=== PATIENT | male | born 1985 | race Caucasian/White ===

== ENCOUNTER → 2020-04-27 | Outpatient (CLI) | payer MEDICARE, MEDICAID, SELFPAY | END | disposition home or self-care (01) | LOC: LABSPEC 09:51 | PROVIDERS: PCP Internal Medicine; Referring Provider Clinical Nurse Specialist; Visit Provider Clinical Nurse Specialist | DX: Z20.828 Contact with and (suspected) exposure to other viral communicable diseases (principal) | CPT/HCPCS: 87635; C9803; G2023; U0003 ==

== ENCOUNTER 2020-11-27 18:58 | Emergency (ER) | payer OTHER, MEDICARE, MEDICAID, SELFPAY ==
[2020-11-27 19:00] VITALS: BP 161/106; PULSE 118; RESP 21; TEMP 36.6; O2SAT 99; BMI 35.4
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
[2020-11-27 20:18] LABS: Absolute Lymphocyte Count 1.53 X10^3/uL (0.83-4.51); Absolute Neutrophil Count 11.1 X10^3/uL (2.0-7.7); Basophil# 0.06 X10^3/uL; Basophil% 0.4 % (0-1); Eosinophil# 0.13 X10^3/uL; Hematocrit 49.4 % (40-54); Hemoglobin 17.2 g/dL (13.0-16.5); Lymphocyte # 1.53 X10^3/ul (4.0); Lymphocyte % 11.2 % (19-41); Mean Corp Hgb Conc 34.8 g/dL (32-36); Mean Corpuscular Hgb 32.8 pg (27.0-32.0); Mean Corpuscular Volume 94.3 fL (80-94); Mean Platelet Vol. 9.4 fl (6.2-12.0); Monocyte# 0.79 X10^3/uL; Monocyte% 5.8 % (0-10); NRBC Flagged by Analyzer 0 % (0-5); Neutrophil # 11.08 X10^3/uL (2.7-7.7); Neutrophil % 81.2 % (47-70); Platelet Count 284 K/mm3 (150-450); RBC Distribution Width CV 11.9 % (11.6-14.6); RBC Distribution Width SD 41.7 fl (35.1-43.9); Red Blood Count 5.24 M/mm3 (4.6-6.2); White Blood Count 13.7 K/mm3 (4.4-11.0)
[2020-11-27 20:25] LABS: International Normalized Ratio 0.9
[2020-11-27 20:32] LABS: Anion Gap 6 (5-15); BUN 15 mg/dL (7-18); BUN/Creat Ratio 16.3 RATIO (10-20); Chloride 109 mmol/L (98-107); Creatinine, Serum 0.92 mg/dL (0.70-1.30); EST Glomerular Filtration Rate 101 mL/min (>60); Est Glom Filt Rate - Afr Amer 122 mL/min (>60); Glucose 103 mg/dL (74-106); Potassium 3.9 mmol/L (3.5-5.1); Sodium Level 141 mmol/L (136-145)
[2020-11-27 20:44] LABS: Alcohol, Blood (Medical)-Serum < 3.0 mg/dL
[2020-11-27 20:56] LABS: Bacteria 0 SEEN /hpf (None Seen); Mucous, Urine 0 SEEN /hpf (<or=2+); Red Blood Cells-Urine 0 SEEN /hpf (0-5); White Blood Cells 0 SEEN /hpf (0-5)
[2020-11-27 20:57] LABS: Color, Urine Yellow (Yellow); Glucose, Dipstick Normal (Normal); Ketone-Dipstick Negative (Negative); Leukocyte Esterase-Dipstick Negative /ul (Negative); Nitrite-Dipstick Negative (Negative); Occult Blood-Urine Negative /ul (Negative); Protein-Dipstick 15 mg/dl (Negative); Urine Bilirubin Dipstick Negative (Negative); Urine Clarity Sl. Cloudy (Clear); Urine Urobilinogen 1 mg/dl (Normal)
[2020-11-27 21:11] VITALS: RESP 16
[2020-11-27 21:11] LABS: Amorphous Sediment 1+ PHOS; Squamous Epithelial Cells - UA 0-5 SEEN /hpf (0-5)
[2020-11-27] MEDS: Ondansetron 4 MG/2 ML Vial IM (21:12)
[2020-11-27] MEDS: fentaNYL 100 MCG/2 ML Ampul 25 MCG IV (21:12)
[2020-11-27 21:42] VITALS: PULSE 97; RESP 18; O2SAT 99
== END 2020-11-27 21:43 | disposition home or self-care (01) ==
PROVIDERS: Emergency Provider Student in an Organized Health Care Education/Training Program; PCP Internal Medicine
DX: S20.212A Contusion of left front wall of thorax, initial encounter (principal); D72.829 Elevated white blood cell count, unspecified; V89.2XXA Person injured in unspecified motor-vehicle accident, traffic, initial encounter; Y93.9 Activity, unspecified; Y92.9 Unspecified place or not applicable; F90.9 Attention-deficit hyperactivity disorder, unspecified type; Z79.899 Other long term (current) drug therapy; F17.200 Nicotine dependence, unspecified, uncomplicated
CPT/HCPCS: 70450; 71260; 74177; 80048; 81001; 82077; 85025; 85610; 93005; 96372; 96374; 99284; Q9967; A4216; J2405

== ENCOUNTER 2025-03-13 23:47 | Emergency (ER) | payer MEDICAID, SELFPAY ==
[2025-03-13 23:48] VITALS: BP 125/91; PULSE 98; RESP 16; TEMP 37; O2SAT 93; BMI 40.4
[2025-03-14] MEDS: Cephalexin 250 MG Capsule 500 MG PO (00:46)
[2025-03-14] MEDS: Lidocaine 2% (20 ml mdv) 20 ML Vial INFILT (00:46)
--- NOTE | 2025-03-14 01:10 | EX.ED.DYSGE1 ---
HPI History of Present Illness Chief Complaint: Lower Extremity Injury Informant: patient Narrative Narrative: Patient is a 39-year-old male with past medical history of traumatic brain injury and seizure disorder. He states roughly 1 to 2 hours ago he was walking barefoot when he had a piece of wood/splinter pierced the bottom of his right foot. He states that he tried to remove the splinter at home but was unsuccessful and secondary to this comes in for evaluation. He denies any history of immunosuppression PFSH PFSH Medical History no medical history Home Medications ?Medication ?Instructions ?Recorded ?Last Taken ?Type cephalexin 500 mg capsule 500 mg PO TID 7 days #21 caps 03/14/25 Unknown Rx Allergy/AdvReac Type Severity Reaction Status Date / Time bismuth subsalicylate (From Allergy Upset Verified 03/13/25 23:56 Pepto-Bismol) Stomach phenytoin (From Dilantin) Allergy Unknown Verified 03/13/25 23:56 Surgical History no surgical history Social History Smoking Status: Current every day smoker tobacco type: cigarettes ROS ROS ED Constitutional Constitutional ED: Denies chills or fever(s) Cardiovascular Cardiovascular: Denies chest pain Respiratory/Chest Respiratory/Chest: Denies cough or dyspnea Gastrointestinal Gastrointestinal: Denies abdominal pain, diarrhea, nausea or vomiting Musculoskeletal Musculoskeletal: Reports other Details: Positive right foot pain Integumentary Reports Abrasions and other Details: Positive splinter right foot Neurologic Neurologic: Denies headache(s) or paresthesias Hematologic/Lymphatic Hematologic/Lymphatic: Denies easy bleeding or easy bruising EXAM Physical Exam Const Vital Signs: 03/13/25 23:48 03/14/25 01:12 Temperature 98.6 F 98.0 F Temperature Source Oral Pulse Rate 98 93 Respiratory Rate 16 18 Blood Pressure 125/91 H 120/85 H Blood Pressure Mean 102 96 Pulse Ox 93 97 Oxygen Delivery Method Room Air Positive well nourished, well developed and obese General Appearance ED: well developed Nutritional Appearance: obese HEENT HEENT Narrative: Normocephalic atraumatic Eyes PERRL and EOMs intact bilaterally Neck supple Resp normal respiratory effort and clear to auscultation bilaterally Cardio regular rate and regular rhythm Extremity Extremity Narrative: Right lower extremity is neurovascularly intact To the plantar aspect of the right foot and there is a 2 cm splinter in the dermal layer tissue along the ball to the midfoot consistent with reported injury. No active bleeding. No soft tissue surrounding changes to suggest infection. Neuro oriented x3, CN's II-XII intact bilaterally and no sensory deficits noted Sensorium / Orientation: alert Motor Exam: strength 5/5 throughout Psych mental status grossly normal Skin Skin Narrative: Puncture wound/retained foreign body to the plantar aspect of the right foot as documented above MDM MDM MDM Narrative Medical decision making narrative: Patient presented to the ER with report of puncture wound/retained foreign body to the right foot. Physical exam confirms there is a retained foreign object. There is no signs of acute infection at this time. Also the foreign object is superficial going against potential arterial injury or fracture. Therefore I felt no need for imaging studies. The patient had the foreign object removed as documented below. As puncture wounds to the plantar aspect of the foot are high risk for infection he will be placed on Keflex. However he does not have signs of active infection at this point nor other changes to suggest ligamentous tendon or bony injury so he is otherwise safe for discharge Patient had the plantar aspect of the right foot cleaned with chlorhexidine. The area was anesthetized with 5 mL of 2% lidocaine without epinephrine and local fashion. Needle drivers were used to grab the splinter/foreign object and traction was applied. The foreign object came out in 1 complete piece. There is no active bleeding. The patient tolerated the procedure well without complication History & Record Review Discussion w/independent historian: Patient Discharge Plan Triage Chief Complaint: Lower Extremity Injury ED Provider: Dennis Omalley Dx/Rx/DC Orders Clinical Impression: Acute foreign body of right foot, History of traumatic brain injury, Seizure disorder Instructions: ED Foreign Body, Soft Tissue (Removed) Prescriptions: New cephalexin 500 mg capsule 500 mg PO TID 7 Days Qty: 21 0RF Primary Care Provider: Katie Evans Referrals: Katie Evans MD [Primary Care Provider] - Activity Restrictions/Additional Instructions: Please continue to wash your foot with soap and water and take the antibiotic as directed to help prevent a secondary infection from the puncture wound/splinter. Return to the ER should you have any further concerns Print Language: Slovenian Disposition Disposition: Home, Self Care Discharge Date/Time: 03/14/25 01:14
[2025-03-14 01:12] VITALS: BP 120/85; PULSE 93; RESP 18; TEMP 36.7; O2SAT 97
== END 2025-03-14 01:14 | disposition home or self-care (01) ==
PROVIDERS: Emergency Provider Emergency Medicine; PCP Internal Medicine; Visit Provider Emergency Medicine
DX: S91.341A Puncture wound with foreign body, right foot, initial encounter (principal); G40.909 Epilepsy, unspecified, not intractable, without status epilepticus; F17.210 Nicotine dependence, cigarettes, uncomplicated; W22.8XXA Striking against or struck by other objects, initial encounter; Y93.01 Activity, walking, marching and hiking; Z18.89 Other specified retained foreign body fragments; S90.851A Superficial foreign body, right foot, initial encounter
CPT/HCPCS: 10120; 99283

== ENCOUNTER 2025-04-11 00:11 | Emergency (ER) | payer MEDICAID, SELFPAY ==
[2025-04-11 00:12] VITALS: BP 135/95; PULSE 85; RESP 16; TEMP 36.6; O2SAT 93; BMI 38.7
--- NOTE | 2025-04-11 00:18 | EX.ED.UPPERE ---
HPI History of Present Illness Chief Complaint: Wound Informant: patient Narrative Narrative: 39-year-old [id number] male states in a nonwork related injury, he was trying to put a trailer tong on a trailer hitch and it slipped and caught his right index finger in between it crushing it causing a laceration and now he is having trouble bending it. This happened earlier today. Tetanus Immunization: Unknown [facility] Medical History no medical history Home Medications ?Medication ?Instructions ?Recorded ?Last Taken ?Type cephalexin 500 mg capsule 500 mg PO Q6 #20 CAPSULES 04/11/25 Unknown Rx Allergy/AdvReac Type Severity Reaction Status Date / Time bismuth subsalicylate (From Allergy Upset Verified 04/11/25 00:11 Pepto-Bismol) Stomach phenytoin (From Dilantin) Allergy Unknown Verified 04/11/25 00:11 Social History Smoking Status: Current every day smoker tobacco type: cigarettes ROS ROS ED Constitutional Constitutional ED: Denies chills or fever(s) Musculoskeletal Musculoskeletal: Reports extremity pain; Denies neck pain Integumentary Reports laceration; Denies Abrasions or rash Neurologic Neurologic: Denies paresthesias or weakness EXAM Physical Exam Const Vital Signs: 04/11/25 00:12 Temperature 97.8 F Temperature Source Oral Pulse Rate 85 Respiratory Rate 16 Blood Pressure 135/95 H Blood Pressure Mean 108 Pulse Ox 93 Oxygen Delivery Method Room Air Positive well nourished and well developed General Appearance ED: well developed and NAD Neck full ROM and supple Back/Spine normal ROM and normal to inspection Extremity Extremity Narrative: Right index finger volar laceration 2 cm jagged but otherwise relatively clean appearing just distal to the PIPJ, patient is able to flex at the PIPJ without difficulty, but he is not able to flex the FDS/DIPJ. Extensors intact without difficulty. No nail injury or subungual hematoma. There is tenderness at the PIPJ and the proximal phalanx without deformity. No other injuries or loss of function otherwise in the hand. Neuro oriented x3, no focal motor deficits and no sensory deficits noted Sensorium / Orientation: alert Psych mental status grossly normal and thought process normal Skin Skin Narrative: 2 cm laceration volar right index finger see above Rashes: no rashes MDM MDM MDM Narrative Medical decision making narrative: Three-view x-ray series of the right index finger on my interpretation are negative for fracture or dislocation. No radiopaque foreign bodies. His hand is filthy, as is the rest of him. I anesthetized the wound locally, scrubbed, repaired the laceration, and even after repair, he still was not able to flex at the FDP. Therefore he is splinted in partial flexion, started on prophylactic antibiotics, and will follow-up with plastics as an outpatient after the weekend. Procedures Lacerations R index finger: Length: 2 cm Depth: Sub Q Shape: Linear Prep: Sterile Conditions and Chlorhexadine Laceration repair: Irrigated, Lidocaine (1%, 1.5cc) and Local Irrigated (ml): 60 Number of Sutures/[place]: 5 Suture Information: Ethilon, Simple and 5-0 Comment: oblique lac; tendons not visible within wound Upper Extremity Splints Upper Extremity Splint: Alumifoam Splint Fabrication: Fabricated Location: Right (index finger in partial flexion; NVID after placement) Discharge Plan Triage Chief Complaint: Wound ED Provider: Dipak Niño Dx/Rx/DC Orders Clinical Impression: Laceration of right index finger w/o foreign body w/o damage to nail, Laceration of flexor muscle, fascia and tendon of right index finger at wrist and hand level, initial encounter Instructions: Treating Flexor Tendon Lacerations, ED Laceration, Hand: All Closures Prescriptions: New cephalexin 500 mg capsule 500 mg PO Q6 Qty: 20 0RF Primary Care Provider: Katie Evans Referrals: Leonard Bryant MD [Med Staff - Active Staff] - As soon as possible (call sunday AM for appt) Print Language: Sammarinese Disposition Disposition: Home, Self Care
--- NOTE | 2025-04-11 00:20 | RAD_ITS ---
PROCEDURE: FINGER(S) MIN 2 VIEWS 04/11/2025 REASON FOR EXAM: INJURY TECHNIQUE: FINGER(S) MIN 2 VIEWS COMPARISON: None. FINDINGS: Palmar laceration overlying the base of the base of the middle phalanx of the 2nd finger. No dislocation is seen. Normal metacarpal head. Normal metacarpophalangeal joint. Normal proximal phalanx. Normal middle phalanx. Normal distal phalanx. Normal proximal interphalangeal joint. Normal distal interphalangeal joint. RAD/Finger(s) Min 2 Views IMPRESSION: Soft tissue soft tissue edema and laceration. [id number]
[2025-04-11] MEDS: Lidocaine 1% (20 ml mdv) 20 ML Vial INFILT (00:27)
--- OUTSIDE RECORDS SUMMARY | 2025-04-11 00:45 | XMS RPT_ITS | CCD ---
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 stay focused at job as directed. Denies any concerns over chest pain. documented as of this encounter (statuses as of 11/13/2022) [facility] History of Past illness Narrative* Problem Noted Date Resolved Date Unspecified epilepsy with intractable epilepsy 0 12/31/2008 06/13/2012 Overview: Tegretol level increased per [place] in 4-09: released to drive as no seizure activity in 6 mo Attention deficit disorder with hyperactivity(31 4.01) 12/31/2008 08/18/2015 Overview: HIV negative in 01-04: pt's girlfriend reportedly has HIV Last Assessment & Plan: Follows with PCP for stimulant to use- takes 5 days per week to help stay focused at job as directed. Denies any concerns over chest pain. documented as of this encounter (statuses as of 12/12/2022) [facility] History of Past illness Narrative* Problem Noted Date Resolved Date Unspecified epilepsy with intractable epilepsy 0 12/31/2008 06/13/2012 Overview: Tegretol level increased per [place] in 4: released to drive as no seizure activity in 6 mo Attention deficit disorder with hyperactivity(31 4.01) 12/31/2008 08/18/2015 Overview: HIV negative in 01-04: pt's girlfriend reportedly has HIV Last Assessment & Plan: Follows with PCP for stimulant to use- takes 5 days per week to help stay focused at job as directed. Denies any concerns over chest pain. documented as of this encounter (statuses as of 04/18/2023) [facility] History of Past illness Narrative* Problem Noted Date Resolved Date Unspecified epilepsy with intractable epilepsy 0 12/31/2008 06/13/2012 Overview: Tegretol level increased per [place] in 4: released to drive as no seizure activity in 6 mo Attention deficit disorder with hyperactivity(31 4.01) 12/31/2008 08/18/2015 Overview: HIV negative in 01-04: pt's girlfriend reportedly has HIV Last Assessment & Plan: Follows with PCP for stimulant to use- takes 5 days per week to help stay focused at job as directed. Denies any concerns over chest pain. documented as of this encounter (statuses as of 04/19/2023) [facility] History of Past illness Narrative* Problem Noted Date Resolved Date Unspecified epilepsy with intractable epilepsy 0 12/31/2008 06/13/2012 Overview: Tegretol level increased per [place] in 02-04: released to drive as no seizure activity in 6 mo Attention deficit disorder with hyperactivity(31 4.01) 12/31/2008 08/18/2015 Overview: HIV negative in 01-04: pt's girlfriend reportedly has HIV Last Assessment & Plan: Follows with PCP for stimulant to use- takes 5 days per week to help stay focused at job as directed. Denies any concerns over chest pain. documented as of this encounter (statuses as of 04/19/2023) [facility] History of Past illness Narrative* Problem Noted Date Resolved Date Unspecified epilepsy with intractable epilepsy 0 12/31/2008 06/13/2012 Overview: Tegretol level increased per [place] in 02-04: released to drive as no seizure activity in 6 mo Attention deficit disorder with hyperactivity(31 4.01) 12/31/2008 08/18/2015 Overview: HIV negative in 01-04: pt's girlfriend reportedly has HIV Last Assessment & Plan: Follows with PCP for stimulant to use- takes 5 days per week to help stay focused at job as directed. Denies any concerns over chest pain. documented as of this encounter (statuses as of 04/27/2023) [facility] History of Past illness Narrative* Problem Noted Date Diagnosed Date Resolved Date Unspecified epilepsy with in tractable epilepsy 12/31/2008 06/13/2012 Overview: Tegretol level increased per [place] in 02-04: released to drive as no seizure activity in 6 mo Attention deficit disorder w ith hyperactivity(314.01) 12/31/2008 08/18/2015 Overview: HIV negative in 01-04: pt's girlfriend reportedly has HIV Last Assessment & Plan: Follows with PCP for stimulant to use- takes 5 days per week to help stay focused at job as directed. Denies any concerns over chest pain. documented as of this encounter (statuses as of 05/16/2023) [facility] History of Past illness Narrative* Problem Noted Date Diagnosed Date Resolved Date Unspecified epilepsy with in tractable epilepsy 12/31/2008 06/13/2012 Overview: Tegretol level increased per [place] in 4-09: released to drive as no seizure activity in 6 mo Attention deficit disorder w ith hyperactivity(314.01) 12/31/2008 08/18/2015 Overview: HIV negative in 01-04: pt's girlfriend reportedly has HIV Last Assessment & Plan: Follows with PCP for stimulant to use- takes 5 days per week to help stay focused at job as directed. Denies any concerns over chest pain. documented as of this encounter (statuses as of 05/16/2023) [facility] History of Past illness Narrative* Problem Noted Date Diagnosed Date Resolved Date Unspecified epilepsy with in tractable epilepsy 12/31/2008 06/13/2012 Overview: Tegretol level increased per [place] in 4: released to drive as no seizure activity in 6 mo Attention deficit disorder w ith hyperactivity(314.01) 12/31/2008 08/18/2015 Overview: HIV negative in 01-04: pt's girlfriend reportedly has HIV Last Assessment & Plan: Follows with PCP for stimulant to use- takes 5 days per week to help stay focused at job as directed. Denies any concerns over chest pain. documented as of this encounter (statuses as of 05/16/2023) [facility] History of Past illness Narrative* Problem Noted Date Diagnosed Date Resolved Date Unspecified epilepsy with in tractable epilepsy 12/31/2008 06/13/2012 Overview: Tegretol level increased per [place] in 4-09: released to drive as no seizure activity in 6 mo Attention deficit disorder w ith hyperactivity(314.01) 12/31/2008 08/18/2015 Overview: HIV negative in 01-04: pt's girlfriend reportedly has HIV Last Assessment & Plan: Follows with PCP for stimulant to use- takes 5 days per week to help stay focused at job as directed. Denies any concerns over chest pain. documented as of this encounter (statuses as of 06/02/2023) [facility] History of Past illness Narrative* Problem Noted Date Diagnosed Date Resolved Date Unspecified epilepsy with in tractable epilepsy 12/31/2008 06/13/2012 Overview: Tegretol level increased per [place] in 02-04: released to drive as no seizure activity in 6 mo Attention deficit disorder w ith hyperactivity(314.01) 12/31/2008 08/18/2015 Overview: HIV negative in 01-04: pt's girlfriend reportedly has HIV Last Assessment & Plan: Follows with PCP for stimulant to use- takes 5 days per week to help stay focused at job as directed. Denies any concerns over chest pain. documented as of this encounter (statuses as of 06/26/2023) [facility] History of Past illness Narrative* Problem Noted Date Diagnosed Date Resolved Date Unspecified epilepsy with in tractable epilepsy 12/31/2008 06/13/2012 Overview: Tegretol level increased per [place] in 02-04: released to drive as no seizure activity in 6 mo Attention deficit disorder w ith hyperactivity(314.01) 12/31/2008 08/18/2015 Overview: HIV negative in 01-04: pt's girlfriend reportedly has HIV Last Assessment & Plan: Follows with PCP for stimulant to use- takes 5 days per week to help stay focused at job as directed. Denies any concerns over chest pain. documented as of this encounter (statuses as of 06/28/2023) [facility] History of Past illness Narrative* Problem Noted Date Diagnosed Date Resolved Date Unspecified epilepsy with in tractable epilepsy 12/31/2008 06/13/2012 Overview: Tegretol level increased per [place] in 02-04: released to drive as no seizure activity in 6 mo Attention deficit disorder w ith hyperactivity(314.01) 12/31/2008 08/18/2015 Overview: HIV negative in 01-04: pt's girlfriend reportedly has HIV Last Assessment & Plan: Follows with PCP for stimulant to use- takes 5 days per week to help stay focused at job as directed. Denies any concerns over chest pain. documented as of this encounter (statuses as of 07/16/2023) [facility] History of Past illness Narrative* Problem Noted Date Diagnosed Date Resolved Date Unspecified epilepsy with in tractable epilepsy 12/31/2008 06/13/2012 Overview: Tegretol level increased per [place] in 02-04: released to drive as no seizure activity in 6 mo Attention deficit disorder w ith hyperactivity(314.01) 12/31/2008 08/18/2015 Overview: HIV negative in 01-04: pt's girlfriend reportedly has HIV Last Assessment & Plan: Follows with PCP for stimulant to use- takes 5 days per week to help stay focused at job as directed. Denies any concerns over chest pain. documented as of this encounter (statuses as of 11/03/2023) [facility] History of Past illness Narrative* Problem Noted Date Diagnosed Date Resolved Date Unspecified epilepsy with in tractable epilepsy 12/31/2008 06/13/2012 Overview: Tegretol level increased per [place] in 02-04: released to drive as no seizure activity in 6 mo Attention deficit disorder w ith hyperactivity(314.01) 12/31/2008 08/18/2015 Overview: HIV negative in 01-04: pt's girlfriend reportedly has HIV Last Assessment & Plan: Follows with PCP for stimulant to use- takes 5 days per week to help stay focused at job as directed. Denies any concerns over chest pain. documented as of this encounter (statuses as of 02/01/2024) [facility] of Past illness Narrative* Problem Noted Date Diagnosed Date Resolved Date Unspecified epilepsy with in tractable epilepsy 12/31/2008 06/13/2012 Overview: Tegretol level increased per [place] in 02-04: released to drive as no seizure activity in 6 mo Attention deficit disorder w ith hyperactivity(314.01) 12/31/2008 08/18/2015 Overview: HIV negative in 01-04: pt's girlfriend reportedly has HIV Last Assessment & Plan: Follows with PCP for stimulant to use- takes 5 days per week to help stay focused at job as directed. Denies any concerns over chest pain. 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 Attention deficit hyperactivity disorder (ADHD), combined type Encounter for long-term current use of medication [facility] Attention deficit hyperactivity disorder (ADHD), combined type Generalized convulsive epilepsy (HCC) Generalized convulsive epilepsy without mention of intractable epilepsy [facility] 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 [facility] Attention deficit hyperactivity disorder (ADHD), combined type- Primary Generalized convulsive epilepsy (HCC) Generalized convulsive epilepsy without mention of intractable epilepsy Encounter for long-term current use of medication Sprain of left ankle, unspecified ligament, sequela [facility] Chronic pain of left ankle- Primary Contusion of right great toe with damage to nail, sequela Contusion of left great toe with damage to nail, sequela Generalized convulsive epilepsy (HCC) Generalized convulsive epilepsy without mention of intractable epilepsy Headaches [facility] Attention deficit hyperactivity disorder (ADHD), combined type [facility] Diagnosis Convulsions, unspecified convulsion type (HCC)- Primary [facility] Diagnosis Encounter for long-term current use of medication- Primary Attention deficit hyperactivity disorder (ADHD), combined type Generalized convulsive epilepsy (HCC) Generalized convulsive epilepsy without mention of intractable epilepsy [facility] Diagnosis Rash- Primary Rash and other nonspecific skin eruption [facility] Diagnosis Convulsions, unspecified convulsion type (HCC)- Primary [facility] Diagnosis Attention deficit hyperactivity disorder (ADHD), combined type- Primary Generalized convulsive epilepsy (HCC) Generalized convulsive epilepsy without mention of intractable epilepsy Rash Rash and other nonspecific skin eruption [facility] Diagnosis Attention deficit hyperactivity disorder (ADHD), combined type- Primary Class 3 severe obesity due to excess calories without serious comorbidity with body mass index (BMI) of 40.0 to 44.9 in adult (HCC) Generalized convulsive epilepsy (HCC) Generalized convulsive epilepsy without mention of intractable epilepsy Cigarette smoker Tobacco use disorder Elevated glucose Other abnormal glucose Elevated triglycerides with high cholesterol Mixed hyperlipidemia Encounter for long-term current use of medication [facility] Diagnosis Attention deficit hyperactivity disorder (ADHD), combined type- Primary Generalized convulsive epilepsy (HCC) Generalized convulsive epilepsy without mention of intractable epilepsy Asthma Unspecified asthma Fungal infection Other and unspecified mycoses Cigarette smoker Tobacco use disorder [facility] Diagnosis Asthma, unspecified asthma severity, unspecified whether complicated, unspecified whether persistent [facility] Diagnosis Convulsions, unspecified convulsion type (HCC)- Primary [facility] Diagnosis Generalized convulsive epilepsy without mention of intractable epilepsy- Primary ATTN DEFICIT W HYPERACT Attention deficit disorder with hyperactivity Tobacco use disorder ATTN DEFICIT W HYPERACT- Primary Attention deficit disorder with hyperactivity Unspecified asthma Other convulsions Generalized convulsive epilepsy without mention of intractable epilepsy Elevated triglycerides with high cholesterol- Primary Mixed hyperlipidemia Mild intermittent asthma without complication Unspecified asthma Class 3 severe obesity due to excess calories without serious comorbidity with body mass index (BMI) of 40.0 to 44.9 in adult (HCC) Cigarette smoker Tobacco use disorder Insomnia, unspecified type [facility] Diagnosis Generalized convulsive epilepsy without mention of intractable epilepsy- Primary ATTN DEFICIT W HYPERACT Attention deficit disorder with hyperactivity Tobacco use disorder ATTN DEFICIT W HYPERACT- Primary Attention deficit disorder with hyperactivity Unspecified asthma Other convulsions Generalized convulsive epilepsy without mention of intractable epilepsy Attention deficit hyperactivity disorder (ADHD), combined type- Primary Generalized convulsive epilepsy (HCC) Generalized convulsive epilepsy without mention of intractable epilepsy Uncomplicated asthma, unspecified asthma severity, unspecified whether persistent Fungal infection Other and unspecified mycoses Discoloration and thickening of nails both feet Cigarette smoker Tobacco use disorder Encounter for immunization Need for other specified prophylactic vaccination against single bacterial disease [facility] Diagnosis Generalized convulsive epilepsy without mention of intractable epilepsy- Primary ATTN DEFICIT W HYPERACT Attention deficit disorder with hyperactivity Tobacco use disorder ATTN DEFICIT W HYPERACT- Primary Attention deficit disorder with hyperactivity Unspecified asthma Other convulsions Generalized convulsive epilepsy without mention of intractable epilepsy Onychodystrophy- Primary Other specified disease of nail Discoloration and thickening of nails both feet Tinea pedis of left foot Dermatophytosis of foot [facility] Diagnosis Generalized convulsive epilepsy without mention of intractable epilepsy- Primary ATTN DEFICIT W HYPERACT Attention deficit disorder with hyperactivity Tobacco use disorder ATTN DEFICIT W HYPERACT- Primary Attention deficit disorder with hyperactivity Unspecified asthma Other convulsions Generalized convulsive epilepsy without mention of intractable epilepsy Exposure to confirmed case of COVID-19- Primary [facility] Diagnosis Generalized convulsive epilepsy without mention of intractable epilepsy- Primary ATTN DEFICIT W HYPERACT Attention deficit disorder with hyperactivity Tobacco use disorder ATTN DEFICIT W HYPERACT- Primary Attention deficit disorder with hyperactivity Unspecified asthma Other convulsions Generalized convulsive epilepsy without mention of intractable epilepsy Attention deficit hyperactivity disorder (ADHD), combined type- Primary Generalized convulsive epilepsy (HCC) Generalized convulsive epilepsy without mention of intractable epilepsy Uncomplicated asthma, unspecified asthma severity, unspecified whether persistent Fungal infection Other and unspecified mycoses Discoloration and thickening of nails both feet Cigarette smoker Tobacco use disorder [facility] Diagnosis Generalized convulsive epilepsy without mention of intractable epilepsy- Primary ATTN DEFICIT W HYPERACT Attention deficit disorder with hyperactivity Tobacco use disorder ATTN DEFICIT W HYPERACT- Primary Attention deficit disorder with hyperactivity Unspecified asthma Other convulsions Generalized convulsive epilepsy without mention of intractable epilepsy Onychodystrophy- Primary Other specified disease of nail documented in this encounter [facility] noteNo assessment information availableGreene [facility] Work Phone: Hospital Discharge instructions Additional Instructions Please continue to wash your foot with soap and water and take the antibiotic as directed to help prevent a secondary infection from the puncture wound/splinter. Return to the ER should you have any further concernsWShel[facility] Work Phone: Reason for referral (narrative)* Outpatient Procedure (Routine) - Pending Review Specialty Diagnoses / Procedures Referred By Jericho day Referred To Contact NEUROLOGICAL MICHAEL Diagnoses Convulsions, unspecified convulsion type (HCC) Procedures EPIL EEG LONG EEG EXTENDED MONITORING 61-119 MINUTES ELECTROENCEPHALOGRAM REC COMA/SLEEP ONLY Diamond Martinez APRN.CNP [address] [place] [address] [place] [address] Referral ID Status Reason Start Date Expiration Date Visits Requested Visits Authorized [id number] Pending Review Auto-Generat ed Referral 04/19/2023 04/19/2024 1 1 [facility] for referral (narrative)* Outpatient Procedure (Routine) - Authorized Specialty Diagnoses / Procedures Referred By Jericho day Referred To Contact [facility] Diagnoses Asthma Procedures SPIROMETRY - BASELINE AND POST DILATOR BRNCDILAT RSPSE SPMTRY PRE&POST-BRNCDILAT ADMN Sharon Blue APRN.TRIMMER TAILER [address] [place] [address] [place] [address] Referral ID Status Reason Start Date Expiration Date Visits Requested Visits Authorized [id number] Authorized Auto-Generat ed Referral 02/01/2024 03/02/2025 1 1 [facility] for referral (narrative)* Outpatient Procedure (Routine) - Closed Specialty Diagnoses / Procedures Referred By Jericho day Referred To Contact [facility] Diagnoses Convulsions, unspecified convulsion type (HCC) Procedures EPIL EEG ROUTINE ELECTROENCEPHALOGRAM REC COMA/SLEEP ONLY Aden Simpson MD [address] [facility] [address] [place] [id number] Neurological [place] [address] [place] [address] Referral ID Status Reason Start Date Expiration Date V isits Requested Visits Authorized [id number] Closed Auto-Generate d Referral 04/03/2024 04/03/2025 1 1 [facility] for referral (narrative)No reason for referral information availableWShelby Memorial Hospital Work Phone: Advance Directives Documents on File Type Date Recorded Patient Reinsurance Claim Analyst Expl anation Advance Directive(s) Documents on File Type Date Recorded Patient Reinsurance Claim Analyst Expl anation Advance Directive(s) Advance Directive Response Recorded Date/ Time Do you have a Healthcare Power of Clinical Pharmacy Coordinator? No March 13, 2025 11:56pm Reason for Referral Specialty Diagnoses / Procedures Referred By Jericho day Referred To Contact Diagnoses Generalized convulsive epilepsy (HCC) Procedures PROVIDER ORDERED FOLLOW UP OFFICE/OUTPATIENT [facility] MDM 60-74 MINUTES Keshia Khan, FERNIE.CNA GNA [address] [facility] [place] [id number] Referral ID Status Reason Start Date Expiration Date Visits Requested Visits Authorized [id number] Authorized PCP Requested Referral 01/27/2023 04/27/2023 1 1 Specialty Diagnoses / Procedures Referred By Jericho day Referred To Contact Neurology Diagnoses Generalized convulsive epilepsy (HCC) Procedures CONSULT TO NEUROLOGY OFFICE/OUTPATIENT [facility] MDM 60-74 MINUTES Keshia Khan APRN.CNP [address] [place] [address] Referral ID Status Reason Start Date Expiration Date Visits Requested Visits Authorized [id number] Authorized PCP Requested Referral 04/27/2022 04/27/2023 1 1 Specialty Diagnoses / Procedures Referred By Contac t Referred To Contact Podiatry Diagnoses Chronic pain of left ankle Contusion of right great toe with damage to nail, sequela Contusion of left great toe with damage to nail, sequela Procedures CONSULT TO PODIATRY OFFICE/OUTPATIENT [facility] 60-74 MINUTES Little Robb MD [address] [place] [address] Referral ID Status Reason Start Date Expiration Date Visits Requested Visits Authorized [id number] Authorized PCP Requested Referral 10/10/2023 1 1 Specialty Diagnoses / Procedures Referred By Contac t Referred To Contact XR IMAGING Diagnoses Chronic pain of left ankle Procedures XR ANKLE GENERAL 3V AP/LAT/OBL LEFT RADEX ANKLE COMPLETE MINIMUM 3 VIEWS Little Robb MD [address] [place] [address] Xr Imaging Referral ID Status Reason Start Date Expiration Date Visits Requested Visits Authorized [id number] Pending Review Auto-Generat ed Referral 2 11/09/2023 1 1 Specialty Diagnoses / Procedures Referred By Contac t Referred To Contact Podiatry Diagnoses Discoloration and thickening of nails both feet Procedures CONSULT TO PODIATRY OFFICE/OUTPATIENT [facility] 60 MINUTES Sharon Blue APRN.KAYLEY [address] [place] [address] Referral ID Status Reason Start Date Expiration Date Visits Requested Visits Authorized [id number] Authorized PCP Requested Referral 10/06/2024 10/06/2025 1 1 Summary Purpose Family History No Family History Records FoundNo Family History Records Found Chief Complaint and Reason for Visit Chief Complaint Admit Date Wood stuck in right foot March 13, 2025 11:47pm Additional Source Comments Source Comments (unrecognize d section and content) In the event this informatio n is protected by the Federal Confidentiality of Alcohol and Drug Abuse Patient Records regulations: The Federal rules restrict any use of the information to criminally investigate or prosecute any alcohol or drug abuse patient.[facility] the event this information is protected by the Federal Confidentiality of Alcohol and Drug Abuse Patient Records regulations: The Federal rules restrict any use of the information to criminally investigate or prosecute any alcohol or drug abuse patient.[facility] HospitalIn the event this information is protected by the Federal Confidentiality of Alcohol and Drug Abuse Patient Records regulations: The Federal rules restrict any use of the information to criminally investigate or prosecute any alcohol or drug abuse patient.[facility] HospitalIn the event this information is protected by the Federal Confidentiality of Alcohol and Drug Abuse Patient Records regulations: The Federal rules restrict any use of the information to criminally investigate or prosecute any alcohol or drug abuse patient.[facility] HospitalIn the event this information is protected by the Federal Confidentiality of Alcohol and Drug Abuse Patient Records regulations: The Federal rules restrict any use of the information to criminally investigate or prosecute any alcohol or drug abuse patient.[facility] the event this information is protected by the Federal Confidentiality of Alcohol and Drug Abuse Patient Records regulations: The Federal rules restrict any use of the information to criminally investigate or prosecute any alcohol or drug abuse patient.[facility] HospitalIn the event this information is protected by the Federal Confidentiality of Alcohol and Drug Abuse Patient Records regulations: The Federal rules restrict any use of the information to criminally investigate or prosecute any alcohol or drug abuse patient.[facility] HospitalIn the event this information is protected by the Federal Confidentiality of Alcohol and Drug Abuse Patient Records regulations: The Federal rules restrict any use of the information to criminally investigate or prosecute any alcohol or drug abuse patient.[facility] HospitalIn the event this information is protected by the Federal Confidentiality of Alcohol and Drug Abuse Patient Records regulations: The Federal rules restrict any use of the information to criminally investigate or prosecute any alcohol or drug abuse patient.[facility] HospitalIn the event this information is protected by the Federal Confidentiality of Alcohol and Drug Abuse Patient Records regulations: The Federal rules restrict any use of the information to criminally investigate or prosecute any alcohol or drug abuse patient.[facility] HospitalIn the event this information is protected by the Federal Confidentiality of Alcohol and Drug Abuse Patient Records regulations: The Federal rules restrict any use of the information to criminally investigate or prosecute any alcohol or drug abuse patient.[facility] HospitalIn the event this information is protected by the Federal Confidentiality of Alcohol and Drug Abuse Patient Records regulations: The Federal rules restrict any use of the information to criminally investigate or prosecute any alcohol or drug abuse patient.[facility] HospitalIn the event this information is protected by the Federal Confidentiality of Alcohol and Drug Abuse Patient Records regulations: The Federal rules restrict any use of the information to criminally investigate or prosecute any alcohol or drug abuse patient.[facility] HospitalIn the event this information is protected by the Federal Confidentiality of Alcohol and Drug Abuse Patient Records regulations: The Federal rules restrict any use of the information to criminally investigate or prosecute any alcohol or drug abuse patient.[facility] HospitalIn the event this information is protected by the Federal Confidentiality of Alcohol and Drug Abuse Patient Records regulations: The Federal rules restrict any use of the information to criminally investigate or prosecute any alcohol or drug abuse patient.[facility] HospitalIn the event this information is protected by the Federal Confidentiality of Alcohol and Drug Abuse Patient Records regulations: The Federal rules restrict any use of the information to criminally investigate or prosecute any alcohol or drug abuse patient.[facility] HospitalIn the event this information is protected by the Federal Confidentiality of Alcohol and Drug Abuse Patient Records regulations: The Federal rules restrict any use of the information to criminally investigate or prosecute any alcohol or drug abuse patient.[facility] HospitalIn the event this information is protected by the Federal Confidentiality of Alcohol and Drug Abuse Patient Records regulations: The Federal rules restrict any use of the information to criminally investigate or prosecute any alcohol or drug abuse patient.[facility] HospitalIn the event this information is protected by the Federal Confidentiality of Alcohol and Drug Abuse Patient Records regulations: The Federal rules restrict any use of the information to criminally investigate or prosecute any alcohol or drug abuse patient.[facility] HospitalIn the event this information is protected by the Federal Confidentiality of Alcohol and Drug Abuse Patient Records regulations: The Federal rules restrict any use of the information to criminally investigate or prosecute any alcohol or drug abuse patient.[facility] HospitalIn the event this information is protected by the Federal Confidentiality of Alcohol and Drug Abuse Patient Records regulations: The Federal rules restrict any use of the information to criminally investigate or prosecute any alcohol or drug abuse patient.[facility] HospitalIn the event this information is protected by the Federal Confidentiality of Alcohol and Drug Abuse Patient Records regulations: The Federal rules restrict any use of the information to criminally investigate or prosecute any alcohol or drug abuse patient.[facility] HospitalIn the event this information is protected by the Federal Confidentiality of Alcohol and Drug Abuse Patient Records regulations: The Federal rules restrict any use of the information to criminally investigate or prosecute any alcohol or drug abuse patient.[facility] HospitalIn the event this information is protected by the Federal Confidentiality of Alcohol and Drug Abuse Patient Records regulations: The Federal rules restrict any use of the information to criminally investigate or prosecute any alcohol or drug abuse patient.[facility] HospitalIn the event this information is protected by the Federal Confidentiality of Alcohol and Drug Abuse Patient Records regulations: The Federal rules restrict any use of the information to criminally investigate or prosecute any alcohol or drug abuse patient.[facility] HospitalIn the event this information is protected by the Federal Confidentiality of Alcohol and Drug Abuse Patient Records regulations: The Federal rules restrict any use of the information to criminally investigate or prosecute any alcohol or drug abuse patient.[facility] HospitalIn the event this information is protected by the Federal Confidentiality of Alcohol and Drug Abuse Patient Records regulations: The Federal rules restrict any use of the information to criminally investigate or prosecute any alcohol or drug abuse patient.[facility] HospitalIn the event this information is protected by the Federal Confidentiality of Alcohol and Drug Abuse Patient Records regulations: The Federal rules restrict any use of the information to criminally investigate or prosecute any alcohol or drug abuse patient.[facility] HospitalIn the event this information is protected by the Federal Confidentiality of Alcohol and Drug Abuse Patient Records regulations: The Federal rules restrict any use of the information to criminally investigate or prosecute any alcohol or drug abuse patient.[facility] HospitalIn the event this information is protected by the Federal Confidentiality of Alcohol and Drug Abuse Patient Records regulations: The Federal rules restrict any use of the information to criminally investigate or prosecute any alcohol or drug abuse patient.[facility] HospitalIn the event this information is protected by the Federal Confidentiality of Alcohol and Drug Abuse Patient Records regulations: The Federal rules restrict any use of the information to criminally investigate or prosecute any alcohol or drug abuse patient.[facility] HospitalIn the event this information is protected by the Federal Confidentiality of Alcohol and Drug Abuse Patient Records regulations: The Federal rules restrict any use of the information to criminally investigate or prosecute any alcohol or drug abuse patient.[facility] HospitalIn the event this information is protected by the Federal Confidentiality of Alcohol and Drug Abuse Patient Records regulations: The Federal rules restrict any use of the information to criminally investigate or prosecute any alcohol or drug abuse patient.[facility] HospitalIn the event this information is protected by the Federal Confidentiality of Alcohol and Drug Abuse Patient Records regulations: The Federal rules restrict any use of the information to criminally investigate or prosecute any alcohol or drug abuse patient.[facility] Reason for Visit (unrecogniz ed section and content) Reason Comments F/U 6 months Reason Comments Appointment Appt on 03/22/2022 Ca ncelled Reason Onset Date Comments Refill Request 04/18/2022 Reason Comments Established Patient Reason Comments Follow Up Reason Comments Results Reason Comments F/U 6 months Reason Onset Date Comments Refill Request 12/06/2022 Reason Comments Appointment Appointment Cancelle d: 04/19/2023 Reason Comments Future Appointment [place], Any Reason Comments Future Appointment Reason Onset Date Comments Refill Request 05/15/2023 Reason Comments Patient Update Reason Comments Rash Rash on arms x 2 wee ks Reason Comments Epilepsy New Patient Reason Comments Medication Question Reason Comments Medication Problem Dextromphetamine - S afety Questions Reason Comments Follow Up review labs and med follow up- Adderall Reason Comments 4 month f/u Reason Comments Spirometry Specialty Diagnoses / Procedures Referred By Contac t Referred To Contact [facility] Diagnoses Asthma Procedures SPIROMETRY - BASELINE AND POST DILATOR BRNCDILAT RSPSE SPMTRY PRE&POST-BRNCDILAT ADMN Sharon Blue, COMMUNITY ORGANIZATION DIRECTOR.TRIMMER TAILER [address] [place] [address] Respiratory [place] [address] [place] [address] Referral ID Status Reason Start Date Expiration Date V isits Requested Visits Authorized [id number] Closed Auto-Generate d Referral 02/01/2024 03/02/2025 1 1 Reason Comments Patient Question Reason Comments Forms/letter BMV form Reason Comments Established Patient Follow Up Reason Comments F/U 4 month Reason Comments New nail deformity Specialty Diagnoses / Procedures Referred By Contmargret t Referred To Contact Podiatry Diagnoses Discoloration and thickening of nails both feet Procedures CONSULT TO PODIATRY OFFICE/OUTPATIENT NEW HIGH MDM 60 MINUTES Sharon Blue, COMMUNITY ORGANIZATION DIRECTOR.TRIMMER TAILER [address] [place] [address] Referral ID Status Reason Start Date Expiration Date V isits Requested Visits Authorized [id number] Closed PCP Requested Referral 10/06/2024 10/06/2025 1 1 Reason Comments Covid19 Concern skilled nursing request ing testing before he is able to see mother, denies symptoms Reason Comments 4 month f/u Reason Comments nail deformity Established Patient Follow Up discuss results Care Teams (unrecognized sec tion and content) Mathematics Instructor Relationship Specialty Start Date End Date Little Robb MD [address] [place], [place] [id number] PCP - General Internal Medicine 08/10/10 Mathematics Instructor Relationship Specialty Start Date End Date Little Robb MD [address] [place], [place] [id number] PCP - General Internal Medicine 08/10/10 Mathematics Instructor Relationship Specialty Start Date End Date Little Robb MD [address] [place] [address] PCP - General Internal Medicine 08/10/10 Mathematics Instructor Relationship Specialty Start Date End Date Little Robb MD [facility] [place] [address] PCP - General Internal Medicine 08/10/10 Mathematics Instructor Relationship Specialty Start Date End Date Little Robb MD [address] [place] [address], [place] [address] PCP - General Internal Medicine 08/10/10 Mathematics Instructor Relationship Specialty Start Date End Date Little Robb MD [address] [place] [address], [place] [address] PCP - General Internal Medicine 08/10/10 Mathematics Instructor Relationship Specialty Start Date End Date Little Robb MD [address] [place] [address], [place] [address] PCP - General Internal Medicine 08/10/10 Mathematics Instructor Relationship Specialty Start Date End Date Little Robb MD [address] [place] [address], [place] [address] PCP - General Internal Medicine 08/10/10 Mathematics Instructor Relationship Specialty Start Date End Date Little Robb MD [address] [place] [address], [place] [address] PCP - General Internal Medicine 08/10/10 Mathematics Instructor Relationship Specialty Start Date End Date Little Robb MD [address] [place] [address], [place] [address] PCP - General Internal Medicine 08/10/10 Mathematics Instructor Relationship Specialty Start Date End Date Little Robb MD [address] [place] [address], [place] [address] PCP - General Internal Medicine 08/10/10 Mathematics Instructor Relationship Specialty Start Date End Date Little Robb MD [address] [place] [address] PCP - General Internal Medicine 08/10/10 Mathematics Instructor Relationship Specialty Start Date End Date Little Robb MD [address] [place] [address] PCP - General Internal Medicine 08/10/10 Mathematics Instructor Relationship Specialty Start Date End Date Little Robb MD [address] [place] [address] PCP - General Internal Medicine 08/10/10 Mathematics Instructor Relationship Specialty Start Date End Date Little Robb MD [address] [place] [address] PCP - General Internal Medicine 08/10/10 Mathematics Instructor Relationship Specialty Start Date End Date Little Robb MD [address] [place] [address] PCP - General Internal Medicine 08/10/10 Mathematics Instructor Relationship Specialty Start Date End Date Little Robb MD [address] [place] [address] PCP - General Internal Medicine 08/10/10 Mathematics Instructor Relationship Specialty Start Date End Date Little Robb MD [address] [place] [address] PCP - General Internal Medicine 08/10/10 Mathematics Instructor Relationship Specialty Start Date End Date Little Robb MD [address] [place] [address] PCP - General Internal Medicine 08/10/10 Mathematics Instructor Relationship Specialty Start Date End Date Little Robb MD [address] [place] [address] PCP - General Internal Medicine 08/10/10 Mathematics Instructor Relationship Specialty Start Date End Date Little Robb MD [address] [place] [address] PCP - General Internal Medicine 08/10/10 Mathematics Instructor Relationship Specialty Start Date End Date Little Robb MD [address] [place] [address] PCP - General Internal Medicine 08/10/10 Mathematics Instructor Relationship Specialty Start Date End Date Little Robb MD [address] [place] [address] PCP - General Internal Medicine 08/10/10 Mathematics Instructor Relationship Specialty Start Date End Date Little Robb MD [address] [place] [address] PCP - General Internal Medicine 08/10/10 Sharon Blue, COMMUNITY ORGANIZATION DIRECTOR.TRIMMER TAILER [address] [place] [address] Application Systems Engineer Internal Medicine 10/06/24 Lori Ware COMMUNITY ORGANIZATION DIRECTOR.CNA GNA [address] [facility] [place] [address] Application Systems Engineer Internal Medicine 10/06/24 Mathematics Instructor Relationship Specialty Start Date End Date Little Robb MD [address] [place] [address] PCP - General Internal Medicine 08/10/10 Sharon Blue APRN.TRIMMER TAILER [address] [place] [address] Application Systems Engineer Internal Medicine 10/06/24 Lori Ware APRN.CNA GNA [address] [place] [address] Application Systems Engineer Internal Medicine 10/06/24 Mathematics Instructor Relationship Specialty Start Date End Date Little Robb MD [address] [place] [address] PCP - General Internal Medicine 08/10/10 Sharon Blue APRN.TRIMMER TAILER [address] [place] [address] Application Systems Engineer Internal Medicine 10/06/24 Lori Ware APRN.CNA GNA [address] [place] [address] Application Systems Engineer Internal Medicine 10/06/24 Mathematics Instructor Relationship Specialty Start Date End Date Little Robb MD [address] [place] [address] PCP - General Internal Medicine 08/10/10 Sharon Blue APRN.TRIMMER TAILER [address] [place] [address] Application Systems Engineer Internal Medicine 10/06/24 Lori Ware APRN.CNA GNA [address] [place] [address] Application Systems Engineer Internal Medicine 10/06/24 Mathematics Instructor Relationship Specialty Start Date End Date Little Robb MD [address] [facility] [place] [address] PCP - General Internal Medicine 08/10/10 Sharon Blue, COMMUNITY ORGANIZATION DIRECTOR.TRIMMER TAILER [address] [place] [address] Application Systems Engineer Internal Medicine 10/06/24 Lori Ware COMMUNITY ORGANIZATION DIRECTOR.CNA GNA [address] [place] [address] [facility] Internal Medicine 10/06/24 Mathematics Instructor Relationship Specialty Start Date End Date Little Robb MD [address] [place] [address] PCP - General Internal Medicine 08/10/10 Sharon Blue, COMMUNITY ORGANIZATION DIRECTOR.TRIMMER TAILER [address] [place] [address] Application Systems Engineer Internal Medicine 10/06/24 Lori Ware COMMUNITY ORGANIZATION DIRECTOR.CNA GNA [address] [place] [address] [facility] Internal Medicine 01/20/25 Team Status: Active Member Role Status Dates Dr. Little Robb MD Primary Care Provider Active Team Status: Inactive Member Role Status Dates Dr. Little Robb MD Primary Care Provider Active Start: March 13, 2025 End: March 14, 2025 Dr. Dennis Omalley DO Emergency Provider Active Start: March 13, 2025 End: March 14, 2025 Mathematics Instructor Relationship Specialty Start Date End Date Little Robb MD [address] [place] [address] PCP - General Internal Medicine 08/10/10 Sharon Blue, FERNIE.TRIMMER TAILER [address] [place] [address] Application Systems Engineer Internal Medicine 10/06/24 03/17/25 Lori Ware APRN.CNA GNA [address] [place], [place] [address] Application Systems Engineer Internal Medicine 01/20/25 Sharon Blue, FERNIE.TRIMMER TAILER [address] [place] [address] Application Systems Engineer Internal Medicine 03/18/25 (unrecognized sect ion and content) No Status Records FoundNo Status Records Found INFORMATION SOURCE (unrecogn ized section and content) DATE CREATED AUTHOR 01/31/2025 [facility] DATE CREATED AUTHOR AUTHOR'S ORGANIZ ATION 03/19/2025 [facility] Goals (unrecognized section and content) Goals may be documented in a n alternate section FOR RECORDS PERTAINING TO PATIENTS WHO ARE OR HAVE BEEN ENROLLED IN A CHEMICAL DEPENDENCY/SUBSTANCEABUSE PROGRAM, SOME INFORMATION MAY BE OMITTED. This clinical summary was aggregated from multiple sources. Caution should be exercised in using it in the provision of clinical care. This summary normalizes information from multiple sources, and as a consequence, information in this document may materially change the coding, format and clinical context of patient data. In addition, data may be omitted in some cases. CLINICAL DECISIONS SHOULD BE BASED ON THE PRIMARY CLINICAL RECORDS. [employer] provides no warranty or guarantee of the accuracy or completeness of information in this document.
[2025-04-11] MEDS: Cephalexin 250 MG Capsule 500 MG PO (01:20)
[2025-04-11 01:22] VITALS: BP 134/79; PULSE 89; RESP 18; TEMP 36.7; O2SAT 97
== END 2025-04-11 01:35 | disposition home or self-care (01) ==
PROVIDERS: Emergency Provider Emergency Medicine; PCP Internal Medicine; Visit Provider Emergency Medicine
DX: S66.120A Laceration of flexor muscle, fascia and tendon of right index finger at wrist and hand level, initial encounter (principal); S61.210A Laceration without foreign body of right index finger without damage to nail, initial encounter; W23.0XXA Caught, crushed, jammed, or pinched between moving objects, initial encounter; F17.210 Nicotine dependence, cigarettes, uncomplicated
CPT/HCPCS: 29130; 12001; 73140; 99283

== ENCOUNTER 2025-04-15 08:59 | Day surgery (SDC) | payer MEDICAID, SELFPAY ==
[2025-04-15] VITALS (13 sets, daily range): BP systolic 114–129; BP diastolic 70–93; PULSE 58–80; RESP 14–20; TEMP 36.1–36.4; O2SAT 91–97; BMI 37.0
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
[2025-04-15] MEDS: Lactated Ringers 1,000 ML 15 ML IV (09:53)
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
[2025-04-15] MEDS: Cefazolin 2 GM in 0.9% Normal Saline (100mL Bag) 100 ML IV (10:23)
[2025-04-15] MEDS: Bupivacaine 0.25% 30 ML Vial (11:30)
--- NOTE | 2025-04-15 13:12 | PCM.POST.ANE ---
Anesthesia: Postop Eval I Current Vital Signs Temperature: 97.2 F Pulse Rate: 80 Blood Pressure: 119/70 Respiratory Rate: 20 Pulse Ox: 91 Oxygen Delivery Method: Non-Rebreather Oxygen Flow Rate (L/min): 6 Assessment Airway patent: Yes Spontaneous unlabored respirations: Yes Mental status: Asleep nausea: No Vomiting: No Anesthesia Complication: No Fluid Hydration Crystalloid volume administer (ml): 1,000 Total IV fluid infused: 1,000 Progress Note Anesthesia document: Postop Eval 1 completed: Yes
--- NOTE | 2025-04-15 13:42 | OP.PCM_ITS ---
Operative Report (Standard) Operative Information Date of Procedure: 04/15/25 Pre-Operative Diagnosis: 1) Right index finger volar laceration with tendon injury Post-Operative Diagnosis: Zone 2 flexor digitorum profundus (FDP) injury right index finger Surgery/Procedure Performed: 1) Repair of zone 2 flexor digitorum profundus laceration to the right index finger (CPT: 96339) 2) right index finger A1 moises release offender employment specialist: Yes Real Estate Broker Associate: Trini Trammell Tasks completed by certified surgical first assistant: Retracting Type of Anesthesia: General/Supplemental (10 cc of 0.25% Marcaine plain for digital block) RN Documented Start/Stop Times: Operation Date: 04/15/25 10:50 Case Time Into Pre-Op 04/15/25 09:15 Anesthesia Start 04/15/25 10:22 Into Room 04/15/25 10:22 Out of Pre-Op 04/15/25 10:54 Procedure Start 04/15/25 10:58 Procedure End 04/15/25 12:55 Anesthesia End 04/15/25 13:03 Out of Room 04/15/25 13:03 Into Recovery 04/15/25 13:06 Procedure Start Time: 10:58 Procedure Stop Time: 12:55 Select all DRAINS/GRAFTS/IMPLANTS that apply: None Estimated Blood Loss: 5 cc Specimen collected: No Description of surgery: Indications: Leonard Balderas is a delightful 39-year-old male who sustained a laceration to the right index finger over P2 sustaining a zone 2 laceration to the flexor tendons. Presents today for exploration and repair. He understands the risk benefits and alternatives to the procedure. Procedure details: The patient was quickly identified in preoperative holding and marked. He was taken back to the operating room where he was administered general anesthesia and a local block. He was prepped and draped in sterile fashion all proper timeouts were performed. Esmarch was used and a tourniquet was applied to the arm insufflated to 250 mmHg. We began the procedure by extending Rebecca-style incisions distally and proximally on the index finger surface with the transverse laceration incorporated within the incisions. The laceration was washed out with copious amounts normal saline and we were able to identify the distal stump of the FDP at the level of the A4 moises (which been partially lacerated from his initial injury); however, the proximal stump of the FDP was retracted significantly. The FDS was visualized and the radial slip was transected 30% and the ulnar slip was completely intact, and therefore no repair of the FDS was performed. The Rebecca incisions were then carefully extended proximally with care taken to raise healthy full-thickness flaps over the tendon sheath and protect the digital neurovascular bundles (which were identified and retracted radially and ulnarly). The A1 moises was identified and incised longitudinally with a 15 blade scalpel. At this level we were able to find the FDP proximal and retracted into the palm. A nylon suture and a tendon passer were then used to feed the tendon through the flexor tendon sheath to the distal stump. We then repaired the FDP with a Tsuge-Taylor repair using a 4 oh looped FiberWire. 5-0 Prolene epitendinous sutures were then used. The cascade was checked and the cut ends of the tendon were approximated without gapping or significant bunching. We were happy with the repair at this point the tourniquet was let down and hemostasis was obtained with bipolar electrocautery as well as small GEM clips for a large superficial vein. The finger was warm and well-perfused at the end of the case. The Rebecca incisions were closed with 3-0 nylon horizontal mattress sutures and interrupted sutures . The patient tolerated the procedure well. Xeroform and a dorsal blocking splint was applied (fingers in flexion). Patient was awakened and taken to the PACU in stable condition. Postoperative plan: Plan for removal of the splint in 5 days for wound check and referral to hand therapy to begin a flexor tendon protocol for early active range of motion (modified Alexandra protocol) with custom made Orthoplast splint. Surgical Findings: * Zone 2 complete transection of the flexor digitorum profundus tendon to the right index finger (proximal stump retracted into the palm) * Zone 2 incomplete injury (30 %) to the radial slip of the flexor digitorum superficialis tendon to the right index finger * Intact ulnar slip of flexor digitorum superficialis tendon to the right index finger Complications Complications: No Admit VTE Documentation VTE Mechan Device Prophylaxis: SCD's
--- NOTE | 2025-04-15 16:35 | POSTOPAN2_ITS ---
Anesthesia Postop Eval I Sum Postop Eval Completion status Anesthesia document: Postop Eval 1 completed: Yes Anesthesia Postop Eval I Summary Anesthesia Postop Eval I Summary: Anesthesia Postop Eval I: Assessment Summary Airway patent Yes 04/15/25 13:14 WEB [email or web address] DESIGNER.[email or web address] Spontaneous unlabored Yes 04/15/25 13:14 WEB GRAPHIC DESIGNER.JDEF respirations Mental status Asleep 04/15/25 13:14 WEB GRAPHIC DESIGNER.JDEF nausea No 04/15/25 13:14 WEB GRAPHIC DESIGNER.JDEF Vomiting No 04/15/25 13:14 WEB GRAPHIC DESIGNER.JDEF Anesthesia Postop Eval I: Fluid Summary Crystalloid volume administer 1,000 04/15/25 13:14 WEB GRAPHIC DESIGNER.JDEF (ml) Colloids volume administered ( ml) Blood Product volume administered (ml) Total IV fluid infused 1,000 04/15/25 13:14 WEB GRAPHIC DESIGNER.JDEF Anesthesia Postop Eval I: Summary Notes Anesthesia Complication No 04/15/25 13:14 WEB GRAPHIC DESIGNER.JDEF Anesthesia Complication Comment: Post-operative progress note Anesthesia: Postop Eval II Evaluation Mental status: Awake Pain Level: 2 nausea: No Vomiting: No
--- NOTE | 2025-04-15 16:35 | PCM.POSTANE2 ---
Anesthesia Postop Eval I Sum Postop Eval Completion status Anesthesia document: Postop Eval 1 completed: Yes Anesthesia Postop Eval I Summary Anesthesia Postop Eval I Summary: Anesthesia Postop Eval I: Assessment Summary Airway patent Yes 04/15/25 13:14 MANAGER [email or web address] Spontaneous unlabored Yes 04/15/25 13:14 MANAGER [email or web address] respirations Mental status Asleep 04/15/25 13:14 MANAGER [email or web address] nausea No 04/15/25 13:14 MANAGER MATERIAL.JDEF Vomiting No 04/15/25 13:14 MANAGER MATERIAL.JDEF Anesthesia Postop Eval I: Fluid Summary Crystalloid volume administer 1,000 04/15/25 13:14 MANAGER [email or web address].JDEF (ml) Colloids volume administered ( ml) Blood Product volume administered (ml) Total IV fluid infused 1,000 04/15/25 13:14 MANAGER MATERIAL.JDEF Anesthesia Postop Eval I: Summary Notes Anesthesia Complication No 04/15/25 13:14 MANAGER MATERIAL.JDEF Anesthesia Complication Comment: Post-operative progress note Anesthesia: Postop Eval II Evaluation Mental status: Awake Pain Level: 2 nausea: No Vomiting: No
== END 2025-04-15 15:52 | disposition home or self-care (01) ==
LOC: SDC 09:03 → AC 09:03
PROVIDERS: PCP Internal Medicine; Referring Provider Surgery Plastic and Reconstructive Surgery; Visit Provider Surgery Plastic and Reconstructive Surgery
PROC: (CPT 26356; principal; 2025-04-15 10:35)
DX: S66.120A Laceration of flexor muscle, fascia and tendon of right index finger at wrist and hand level, initial encounter (principal); W23.1XXA Caught, crushed, jammed, or pinched between stationary objects, initial encounter; F17.210 Nicotine dependence, cigarettes, uncomplicated
CPT/HCPCS: 26356; 26055; 01810; J2405

== ENCOUNTER 2025-09-10 07:30 | Outpatient (RCR) | payer MEDICARE, MEDICAID, SELFPAY ==
--- NOTE | 2025-04-22 11:10 | HP.OTEVAL ---
Patient's Visit Information Visit Information Visit Information: KALEIGH BOBO is a 40 year old M, referred to Occupational Therapy by Dr. Kaleigh Bryant MD, with a diagnosis of zone 2 R D2 FDP 100% laceration, R D2 A1 moises release, R D2 FDS 30% radia. Date of Evaluation: 04/22/25 Occupational Therapist: Ashley Freeman Subjective Subjective: DOS 04/15 s/p 1w post op zone 2 R D2 FDP 100% laceration, R D2 A1 moises release, R D2 FDS 30% radial slip pt presenting with bulky dressing from [facility] office yesterday. still has stitches in and reporting they would be removed in 2 weeks. pt reporting no pain. pt presents with some difficulty to understand the precautions such as wearing the splint all the time and the purpose being to prevent finger extension. per Manny in following marycarmen hand modified escalante for early passive mobilization. Goals Goal:100% adherence to protocol: Yes Goal:Daily scar massage when approriate: Yes Goal:ROM equal to unaffected hand: Yes Goal:Conservation Science Teacher/Pinch strength at least 75% of unaffected hand: Yes Goal:No pain with affected hand use: Yes Goal:PIP Circumferences equal to unaffected hand: Yes Goal:Full use of affected hand in daily activities including work: Yes Rehabilitation General Assessment: pt presenting s/p flexor tendon repair for custom jefry dorsal blocking splint and initiation of exercise protocol (modified Escalante per Manny). pt demo some bleeding still along stitches on volar D2 and he reported that Manny looked at it yesterday and was okay with that. pt ed on splint purpose to avoid digit extension past the means of the splint and to keep splint on at all times even during exercises. pt reporting they are trying to make him use that hand at work and further pt ed to emphasize to avoid using that hand at all times or can rupture repair. pt ed on first phase of modified Escalante exercises for PROM of flex/ext within the confines of the splint, but pt very tentative to perform on D2 d/t stitches and pain. pt ed on using other hand to perform PROM and handouts given with pictures and written directions on HEP. pt ed to keep incision clean as pt presenting with messy appearance and emphasized importance of keeping incision clean to avoid infection. pt demo questionable understanding of protocol even after several repetitions of information and demonstration. Anticipated Interventions Anticipated Interventions: Modified Escalante Protocol, A/AAROM/PROM, Scar Care, Desensitization and Wound Care Other Interventions: possible wound care based on healing and possibility for infection Visit Plan Frequency: 1x/Week TEXT: Thank you for the opportunity to evaluate your patient. For Medicare and Medicare HMO plans, please review the plan of care and approve it. It will need to be FAXED BACK to us at [phone] for Medicare purposes. Please let me know if there are questions or concerns regarding this plan of care. Physician Signature: Date:
--- NOTE | 2025-09-10 07:54 | HP.OTDCSUM ---
Discharge Summary D/C Summary: It has been my pleasure to treat KALEIGH BOBO under orders from Dr. Kaleigh Bryant MD, for the diagnosis of zone 2 R D2 FDP 100% laceration, R D2 A1 moises release, R D2 FDS 30% radia for a total of 19 visit(s). Please see the following information for a summary of their discharge status. Overall Improvement % Improvement: 80 Objective Objective/Function: right bacteriologist soil strength 85# right lateral pinch 16# right tripod pinch 16# right DIP flexion 0 with blocking 25* right PIP flexion 90* pt continues to demo limitations of composite fist- pt states this does not limit him from any daily task. Goals Goal:100% adherence to protocol: Yes Goal:Daily scar massage when approriate: Yes Goal:ROM equal to unaffected hand: Yes Goal:Supervisor Gelatin Plant/Pinch strength at least 75% of unaffected hand: Yes Goal:No pain with affected hand use: Yes Goal:PIP Circumferences equal to unaffected hand: Yes Goal:Full use of affected hand in daily activities including work: Yes Plan Plan: pt to work on his own with HEP return in two weeks D/C Information Discharge Comments: pt has maintained his ROM since jun. despit his attempts at his exercise HEP. With blocking pt is able to have DIP flexion to 30* Therapist advised pt to cont. HEP Return to dr[facility] if he feels this limits pt with daily tasks- therapist did ed. pt on if he decided to remove scar tissue recovery. Pt will contact office for follow up and to speak with if he feels he wants further sx. pt agrees with d/c at this time. d/c sentence: If there are questions or concerns regarding this patient's occupational therapy, please fell free to call me at [phone]. Thank you for the referral of this patient. Sincerely, Sowmya Laurent, OTR/L, CHT
== END 2025-09-10 19:00 | disposition home or self-care (01) ==
LOC: OT 07:30
PROVIDERS: PCP Internal Medicine; Referring Provider Surgery Plastic and Reconstructive Surgery; Visit Provider Surgery Plastic and Reconstructive Surgery
DX: S66.120D Laceration of flexor muscle, fascia and tendon of right index finger at wrist and hand level, subsequent encounter (principal)
CPT/HCPCS: 97110; 97140; 97165; 97530